=== PATIENT | female | born 1970 | race Caucasian/White ===

== ENCOUNTER 2018-02-04 18:51 | Emergency (ER) | payer OTHER ==
[2018-02-04 18:57] VITALS: BP 139/58; PULSE 68; TEMP 98; BMI 346.4
--- NOTE | 2018-02-04 19:00 | PDOC ---
Rapid Medical Evaluation Time Seen by Provider: 02/04/18 18:56 Medical Evaluation: Allergies Allergy/AdvReac Type Severity Reaction Status Date / Time No Known Drug Allergies Allergy Verified 02/04/18 18:52 Vital Signs Temp Pulse Resp BP Pulse Ox 98 F 68 18 139/58 L 100 02/04/18 18:53 02/04/18 18:53 02/04/18 18:53 02/04/18 18:53 02/04/18 18:53 02/04/18 18:57 I have performed a brief in-person evaluation of this patient. The patient presents with a chief complaint of: vaginal itching and dysuria s/p unprotected sex Pertinent physical exam findings: Abd SNTND. I have ordered the following: urine The patient will proceed to the ED for further evaluation. Discharge Disposition - Diagnosis Vaginal burning - Referrals - Patient Instructions - Post Discharge Activity
--- NOTE | 2018-02-04 19:34 | PDOC ---
History of Present Illness - General Chief Complaint: Vaginal Sxs Stated Complaint: PAIN Time Seen by Provider: 02/04/18 18:56 - History of Present Illness Initial Comments: Bella Vergara is a 47yo woman with a PMH of nephrolithiasis requiring lithotripsy and uterine fibroids s/p hysterectomy. She presents with one day of vaginal itching and burning. She reports that starting yesterday, she noticed some vaginal itching inside the vaginal canal. She had pain with intercourse and afterwards noticed a small amount of pinkish discharge when she wiped after using the bathroom. She thought it might be a yeast infection as she had one years ago, and she bought an [id number] "egg" to treat it. She used the medication around 9am without any improvement. The itching and burning has worsened throughout the day. Ms Vergara has also had burning pain with urination today. She denies any flank or suprapubic pain, hematuria, or frequency. She states that the current feeling is nothing like when she had kidney stones in the past. She was most concerned about the pink vaginal discharge as she had a hysterectomy two years ago, and she was worried when she saw blood today. She denies any change in bowel habits, abdominal pain, nausea/vomiting, or systemic symptoms including fevers or chills. She takes no medications at home and has no known health problems currently. Past History - Past Medical History Allergies/Adverse Reactions: Allergies Allergy/AdvReac Type Severity Reaction Status Date / Time No Known Drug Allergies Allergy Verified 02/04/18 18:52 Home Medications: Ambulatory Orders Hydrocodone/Ibuprofen [Hydrocodone-Ibuprofen 7.5-200] 1 each PO Q6H #20 tablet MDD 4 01/03/16 Ibuprofen [Motrin -] 800 mg PO Q6H #30 tablet 01/03/16 Ondansetron HCl [Zofran] 4 mg PO Q8H #12 tablet 01/03/16 Tamsulosin HCl [Flomax] 0.4 mg PO DAILY #7 cap.er.24h 01/03/16 Fluconazole 150 mg PO ONCE #1 tablet 02/04/18 Anemia: Yes (due to fibroids) Asthma: No Cancer: No Cardiac Disorders: No CVA: No COPD: No CHF: No Dementia: No Diabetes: No GI Disorders: No Disorders: No HTN: No Hypercholesterolemia: No Kidney Stones: Yes (lithotripsy) Liver Disease: No Seizures: No Thyroid Disease: No - Surgical History Abdominal Surgery: No (liposuction/tummy tuck) Appendectomy: No Cardiac Surgery: No Cholecystectomy: No Lung Surgery: No Neurologic Surgery: No Orthopedic Surgery: No - Immunization History Immunization Up to Date: Yes - Suicide/Smoking/Psychosocial Hx Smoking History: Current some day smoker Have you smoked in the past 12 months: No Number of Cigarettes Smoked Daily: 0 Information on smoking cessation initiated: Yes Hx Alcohol Use: No Drug/Substance Use Hx: No Substance Use Type: None Hx Substance Use Treatment: No Review of Systems - Review of Systems Comments:: General: No fevers, no chills, no weight or appetite change, no malaise HEENT: No changes in vision, no changes in hearing, no congestion, no sore throat CV: No chest pain, no palpitations, no LE edema Pulm: No SOB, no cough, no wheezing GI: No nausea or vomiting, no change in bowel habits, no melena : See HPI. +burning with urination, no unusual discharge Musc: No back pain, no joint swelling, no recent injury Skin: No rash, no lesions, no erythema Endo: No excessive thirst, no heat/cold intolerance Heme: No unusual bruising or bleeding, no swollen glands Neuro: No syncope, no numbness/tingling, no focal weakness Vasc: No claudication Psych: No recent change in mood, no SI or HI *Physical Exam - Vital Signs Last Vital Signs Temp Pulse Resp BP Pulse Ox 98 F 68 18 139/58 L 100 02/04/18 18:53 02/04/18 18:53 02/04/18 18:53 02/04/18 18:53 02/04/18 18:53 - Physical Exam Comments: General: Comfortable, no acute distress HEENT: PERRL, EOMI, MMM, voice normal, normal neck ROM, no LAD Cards: RRR, no murmur appreciated Pulm: Comfortable on room air, clear to auscultation bilaterally Abd: Soft, nontender, nondistended : No CVA tenderness Pelvic: Normal external genitalia, no lesions or discharge. Thick, white discharge in vaginal canal. No bleeding, lesions, or abrasions Ext: Atraumatic. No LE edema. ROM intact. Strength 5/5 and equal bilaterally Vasc: Extremities WWP. Skin: Normal color, no rashes or lesions Neuro: A&Ox3, CN grossly intact, normal speech, motor/sensory grossly intact and symmetric Psych: Mood appropriate to situation Medical Decision Making - Medical Decision Making 02/04/18 19:38 Bella Vergara is a 47yo woman with a PMH of kidney stones and uterine fibroids s /p hysterectomy who presents with one day of vaginal itching and burning with urination as well as pain during intercourse. She has not noticed any unusual discharge. - Symptoms consistent with UTI vs yeast infection, BV. Less concerning for gonorrhea/chlamydia or other STD - UA, gonorrhea and chlamydia sent in [facility]. Results pending - Pelvic exam with thick white discharge consistent with yeast infection - Likely to discharge home with antifungal prescription if UA is negative 02/04/18 20:17 - UA negative - Giving prescription for fluconazole. Will give 1 tablet here, additional tablet to be taken in 72 hours if symptoms have not resolved - Discussed plan with Ms Vergara. She understands and agrees to the plan. Advised her to make an appointment with Dr Garcia for follow up next week. Seen and discussed with Dr Bonds. Kati Ni PGY1 *DC/Admit/Observation/Transfer Diagnosis at time of Disposition: Yeast infection - Discharge Dispostion Disposition: HOME Condition at time of disposition: Stable Decision to Admit order: No - Prescriptions Prescriptions: Fluconazole 150 mg PO ONCE #1 tablet - Referrals Referrals: Nancy Garcia MD [Staff Physician] - - Patient Instructions Printed Discharge Instructions: DI for Vaginal Yeast Infection Additional Instructions: Discharge Instructions: - You were seen in the ED for vaginal burning and itching, and you were found to have a yeast infection. - You were given one antifungal tablet, fluconazole, while in the ED. If your symptoms have not resolved in 73 hours (Friday night), you should take a second tablet. This has been sent to your pharmacy. - Call your OB/gyne doctor (Dr Garcia) to schedule follow up for early next week - Seek medical care if you have worsening symptoms, vaginal bleeding, or fever/ chills along with your current symptoms - Post Discharge Activity
[2018-02-04 19:40] LABS: URINE APPEARANCE CLEAR; URINE BILIRUBIN NEGATIVE (<2.0 mg/dL); URINE COLOR LTYELLOW; URINE GLUCOSE (UA) NEGATIVE (NEGATIVE); URINE KETONE NEGATIVE (NEGATIVE); URINE LEUK ESTERASE NEGATIVE (NEGATIVE); URINE NITRITE NEGATIVE (NEGATIVE); URINE PROTEIN NEGATIVE (NEGATIVE)
--- NOTE | 2018-02-04 20:05 | PDOC ---
Attending Attestation - Resident Resident Name: Kati Ni - ED Attending Attestation I have performed the following: I have examined & evaluated the patient, The case was reviewed & discussed with the resident, I agree w/resident's findings & plan, Exceptions are as noted - Medical Decision Making 02/04/18 20:05 I, Dr. Collette Bonds, DO, attest that this document has been prepared under my direction and personally reviewed by me in its entirety. I further attest, that it accurately reflects all work, treatment, procedures and medical decision -making performed by me. 02/04/18 20:15 a/p: 47yo female with vaginal itching and discharge -per resident, has white cheesy discharge on exam consistent with a yeast infection -hx of hysterectomy -follows with dr. 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 The patient presents with 1 day of vaginal itching, with pain after intercourse. The patient reports the pains been without improvement all day today, reports using an OTC egg treatment, without relief. The patient states she noticed a pinkish discharge when she was wiping. The patient reports associated symptoms of dysuria, denies fever, chills, hematuria, changes in bowel habits. Allergies: NKDA Social history: Current everyday smoker, no past or present us of alcohol reported. Surgical history: hysterectomy, lithotripsy, liposuction/tummy tuck. BLACK PICKLER: . - Physicial Exam PE: 02/04/18 21:28 GENERAL: Awake, alert, and fully oriented, in no acute distress HEAD: No signs of trauma EYES: PERRLA, EOMI, sclera anicteric, conjunctiva clear ENT: Auricles normal inspection, hearing grossly normal, nares patent, oropharynx clear without exudates. Moist mucosa NECK: Normal ROM, supple, no lymphadenopathy, JVD, or masses LUNGS: Breath sounds equal, clear to auscultation bilaterally. No wheezes, and no crackles HEART: Regular rate and rhythm, normal S1 and S2, no murmurs, rubs or gallops ABDOMEN: Soft, nontender. No guarding, no rebound. No masses Pelvic exam: Per Dr. Ni. EXTREMITIES: Normal range of motion, no edema. No clubbing or cyanosis. No cords, erythema, or tenderness NEUROLOGICAL: Cranial nerves II through XII grossly intact. Normal speech, normal gait SKIN: Warm, Dry, normal turgor, no rashes or lesions noted. - Medical Decision Making 02/04/18 21:33 Documentation prepared by Xiomara Montano, acting as center medical director for Collette Bonds DO. <Xiomara Montano - Last Filed: 02/04/18 21:33>
[2018-02-04] MEDS ORDERED: FLUCONAZOLE 50 MG TABLET PO ONE (20:09)
[2018-02-04] MEDS ORDERED: FLUCONAZOLE 100 MG TABLET (UD) PO ONE (20:15)
[2018-02-04] MEDS ORDERED: FLUCONAZOLE 100 MG TABLET (UD) ONE (20:23)
== END 2018-02-04 20:32 | disposition home or self-care (01) ==
LOC: JER 18:51
DX: B37.9 Candidiasis, unspecified (principal); N20.0 Calculus of kidney
CPT/HCPCS: 36415; 81003; 87086; 87491; 87591; 99281-25

== ENCOUNTER 2018-04-08 19:12 | Emergency (ER) | payer OTHER ==
[2018-04-08 19:31] VITALS: BP 137/70; PULSE 70; TEMP 98; BMI 35.5
--- NOTE | 2018-04-08 19:31 | PDOC ---
Rapid Medical Evaluation Medical Evaluation: Allergies Allergy/AdvReac Type Severity Reaction Status Date / Time No Known Drug Allergies Allergy Verified 02/04/18 18:52 I have performed a brief in-person evaluation of this patient. The patient presents with a chief complaint of: Hx of hysterectomy; Concerned for possible yeast infection; having cottage-cheese like vaginal discharge and itching x 3 days Pertinent physical exam findings: Deferred I have ordered the following: Nothing The patient will proceed to the ED for further evaluation 04/08/18 19:28 Discharge Disposition - Referrals Referrals: Barry Medina MD [Primary Care Provider] - - Patient Instructions - Post Discharge Activity
[2018-04-08] MEDS ORDERED: FLUCONAZOLE 150 MG TABLET PO ONE (21:02)
[2018-04-08] MEDS ORDERED: FLUCONAZOLE 100 MG TABLET (UD) ONE (21:04)
--- NOTE | 2018-04-08 21:05 | PDOC ---
History of Present Illness - General Chief Complaint: Vaginal Sxs Stated Complaint: PERSONAL Time Seen by Provider: 04/08/18 19:31 History Source: Patient Exam Limitations: No Limitations Past History - Past Medical History Allergies/Adverse Reactions: Allergies Allergy/AdvReac Type Severity Reaction Status Date / Time No Known Drug Allergies Allergy Verified 04/08/18 19:31 Home Medications: Ambulatory Orders Fluconazole 150 mg PO DAILY #10 tablet 04/08/18 Anemia: Yes (due to fibroids) Asthma: No Cancer: No Cardiac Disorders: No CVA: No COPD: No CHF: No Dementia: No Diabetes: No GI Disorders: No Disorders: No HTN: No Hypercholesterolemia: No Kidney Stones: Yes (lithotripsy) Liver Disease: No Seizures: No Thyroid Disease: No - Surgical History Abdominal Surgery: Yes (liposuction/tummy tuck) Appendectomy: No Cardiac Surgery: No Cholecystectomy: No Lung Surgery: No Neurologic Surgery: No Orthopedic Surgery: No - Immunization History Immunization Up to Date: Yes - Suicide/Smoking/Psychosocial Hx Smoking History: Never smoked Have you smoked in the past 12 months: No Number of Cigarettes Smoked Daily: 0 Hx Alcohol Use: No Drug/Substance Use Hx: No Substance Use Type: None Hx Substance Use Treatment: No *Physical Exam - Vital Signs Last Vital Signs Temp Pulse Resp BP Pulse Ox 98.0 F 70 18 137/70 97 04/08/18 19:29 04/08/18 19:29 04/08/18 19:29 04/08/18 19:29 04/08/18 19:29 - Physical Exam General Appearance: No: Apparent Distress Respiratory/Chest: positive: Lungs Clear, Normal Breath Sounds. negative: Respiratory Distress Cardiovascular: positive: Regular Rhythm, Regular Rate, S1, S2. negative: Murmur Female Pelvic Exam: positive: discharge (cottage cheese like discharge). negative: CMT, adnexal tenderness, vaginal bleeding Gastrointestinal/Abdominal: positive: Normal Bowel Sounds, Soft. negative: Tender, Distended, Guarding, Rebound Integumentary: positive: Normal Color Moderate Sedation - Procedure Monitoring Vital Signs: Procedure Monitoring Vital Signs Temperature 98.0 F 04/08/18 19:29 Pulse Rate 70 04/08/18 19:29 Respiratory Rate 18 04/08/18 19:29 Blood Pressure 137/70 04/08/18 19:29 O2 Sat by Pulse Oximetry (%) 97 04/08/18 19:29 Medical Decision Making - Medical Decision Making 48 y/o F hx of hysterectomy (due to fibroids), kidney stones presents with cottage-cheese like vaginal discharge and itching x 3 days. Was recently treated for yeast infection in 01/2018 with Fluconazole x 1 (got additional tablet on discharge to take in 72 hours, which patient did end up taking). Denies fever, sob, cp, abd pain, n/v, urinary complaints. PE consistent with vaginal candidiasis Given recurrent yeast infection, will treat for longer time; also advised to f/ u with her paperhanger pipe 04/08/18 21:04 *DC/Admit/Observation/Transfer Diagnosis at time of Disposition: Vaginal candidiasis - Discharge Dispostion Disposition: HOME Condition at time of disposition: Stable Decision to Admit order: No - Prescriptions Prescriptions: Fluconazole 150 mg PO DAILY #10 tablet - Referrals Referrals: Barry Medina MD [Primary Care Provider] - 3 days - Patient Instructions Printed Discharge Instructions: DI for Vaginal Yeast Infection Additional Instructions: Thank you for choosing [facility]. It was a pleasure taking care of you. You were seen here for yeast infection, for which you were prescribed Fluconazole Take the medication as prescribed Follow-up with paperhanger pipe in 1 week. Return to the Emergency Department if your symptoms worsen or persist or have other concerning symptoms. - Post Discharge Activity
== END 2018-04-08 21:11 | disposition home or self-care (01) ==
LOC: JERFT 19:12
DX: B37.3 Candidiasis of vulva and vagina (principal)
CPT/HCPCS: 99281-25

== ENCOUNTER 2018-04-22 19:02 | Emergency (ER) | payer OTHER ==
[2018-04-22 19:14] VITALS: BP 138/64; PULSE 92; TEMP 98.1; BMI 35.5
--- NOTE | 2018-04-22 19:14 | PDOC ---
Rapid Medical Evaluation Chief Complaint: Urinary Problem Time Seen by Provider: 04/22/18 19:11 Medical Evaluation: Allergies Allergy/AdvReac Type Severity Reaction Status Date / Time No Known Drug Allergies Allergy Verified 04/08/18 19:31 04/22/18 19:13 I have performed a brief in person evaluation of this patient. The patient presents with the CC of: dysuria HPI: Pt complains of dysuria x 1 day. Denies hx of UTIs PE: Skin: Clear Lungs: Clear Heart: RRR Abd: non tender MS: Moves all extremities without difficulty Neuro: Alert and oriented Psych: Appropriate affect I have ordered the following: UA CG Pt will proceed to the [facility] for further evaluation. Discharge Disposition - Diagnosis Urinary tract infection Qualifiers: Urinary tract infection type: site unspecified Hematuria presence: with hematuria Qualified Code(s): N39.0 - Urinary tract infection, site not specified ; R31.9 - Hematuria, unspecified - Referrals - Patient Instructions - Post Discharge Activity
[2018-04-22 19:34] LABS: URINE APPEARANCE CLOUDY; URINE BILIRUBIN NEGATIVE (<2.0 mg/dL); URINE COLOR YELLOW; URINE GLUCOSE (UA) NEGATIVE (NEGATIVE); URINE KETONE NEGATIVE (NEGATIVE); URINE LEUK ESTERASE 3+ (NEGATIVE); URINE NITRITE POSITIVE (NEGATIVE); URINE PROTEIN 2+ (NEGATIVE); URINE UROBILINOGEN NEGATIVE mg/dL (0.2-1.0)
--- NOTE | 2018-04-22 19:35 | PDOC ---
History of Present Illness - General Chief Complaint: Urinary Problem Stated Complaint: BODYACHES Time Seen by Provider: 04/22/18 19:11 - History of Present Illness Initial Comments: 04/22/18 19:34 48-year-old female without comorbidities presents for evaluation of dysuria without systemic symptoms times one day. She also reports hematorrhea without back pain. Past History - Past Medical History Allergies/Adverse Reactions: Allergies Allergy/AdvReac Type Severity Reaction Status Date / Time No Known Drug Allergies Allergy Verified 04/22/18 19:14 Home Medications: Ambulatory Orders Fluconazole 150 mg PO DAILY #10 tablet 04/08/18 Nitrofurantoin Monohyd/M-Cryst [Macrobid -] 100 mg PO BID #14 capsule 04/22/18 Anemia: Yes (due to fibroids) Asthma: No Cancer: No Cardiac Disorders: No CVA: No COPD: No CHF: No Dementia: No Diabetes: No GI Disorders: No Disorders: No HTN: No Hypercholesterolemia: No Kidney Stones: Yes (lithotripsy) Liver Disease: No Seizures: No Thyroid Disease: No - Surgical History Abdominal Surgery: Yes (liposuction/tummy tuck) Appendectomy: No Cardiac Surgery: No Cholecystectomy: No Lung Surgery: No Neurologic Surgery: No Orthopedic Surgery: No - Immunization History Immunization Up to Date: Yes - Suicide/Smoking/Psychosocial Hx Smoking History: Never smoked Have you smoked in the past 12 months: No Number of Cigarettes Smoked Daily: 0 Hx Alcohol Use: No Drug/Substance Use Hx: No Substance Use Type: None Hx Substance Use Treatment: No Review of Systems - Review of Systems Constitutional: No: Fever : Yes: See HPI, Burning, Dysuria, Frequency, Hematuria, Pain, Urgency. No: Discharge, Flank Pain, Incontinence *Physical Exam - Vital Signs Last Vital Signs Temp Pulse Resp BP Pulse Ox 98.1 F 92 H 18 138/64 99 04/22/18 19:11 04/22/18 19:11 04/22/18 19:11 04/22/18 19:11 04/22/18 19:11 - Physical Exam Comments: 04/22/18 19:34 HEAD: NC/AT EYES: Conjuntiva clear ABDOMEN: Soft NT ND; no cvat MS: Full ROM in all joints without edema NEUROLOGIC: No gross sensory or motor deficits, NVID SKIN: Normal color and temperature no lesions or rashes Moderate Sedation - Procedure Monitoring Vital Signs: Procedure Monitoring Vital Signs Temperature 98.1 F 04/22/18 19:11 Pulse Rate 92 H 04/22/18 19:11 Respiratory Rate 18 04/22/18 19:11 Blood Pressure 138/64 04/22/18 19:11 O2 Sat by Pulse Oximetry (%) 99 04/22/18 19:11 *DC/Admit/Observation/Transfer Diagnosis at time of Disposition: Urinary tract infection Qualifiers: Urinary tract infection type: site unspecified Hematuria presence: with hematuria Qualified Code(s): N39.0 - Urinary tract infection, site not specified - Discharge Dispostion Disposition: HOME Condition at time of disposition: Stable Decision to Admit order: No - Prescriptions Prescriptions: Nitrofurantoin Monohyd/M-Cryst [Macrobid -] 100 mg PO BID #14 capsule - Referrals Referrals: Barry Medina MD [Primary Care Provider] - - Patient Instructions Printed Discharge Instructions: Urinary Tract Infection Additional Instructions: Please take the antibiotics as directed. Return to the emergency room should symptoms worsen or go unresolved. Follow-up with your primary care physician in one to 2 days for further evaluation and treatment options. - Post Discharge Activity
[2018-04-22 19:36] LABS: HCG,QUALITATIVE URINE Negative
[2018-04-22 19:39] LABS: EPI CELLS RARE /HPF (FEW); URINE MUCUS RARE; YEAST RARE
== END 2018-04-22 19:46 | disposition home or self-care (01) ==
LOC: JERFT 19:02
DX: N39.0 Urinary tract infection, site not specified (principal)
CPT/HCPCS: 81003; 81015; 84703; 99281-25

== ENCOUNTER 2019-02-11 11:08 | Emergency (ER) | payer OTHER ==
[2019-02-11 11:14] VITALS: BP 108/62; PULSE 80; TEMP 98.6; BMI 38.5
[2019-02-11] MEDS ORDERED: IBUPROFEN 600 MG TABLET (FP) PO ONE ×2 (11:18→11:23)
--- NOTE | 2019-02-11 11:18 | PDOC ---
History of Present Illness <KerriLeanna Nena - Last Filed: 02/11/19 13:27> - General History Source: Patient Exam Limitations: No Limitations - History of Present Illness Initial Comments: 02/11/19 11:21 48 yo female pmh asthma presents to the ED after a fall with left ankle pain. Pt states she was walking on gravel ground, inverted her left ankle, had sudden onset pain however did not fall or injure any other part of her body. Pt was able to ambulate full weight baring within 10 min of the fall. Pt noted swelling and point tenderness to the left lateral maleolus. Denies strength or sensory changes, decreased ROM, coldness into the foot. <Santosh Graves - Last Filed: 02/11/19 13:43> - General Chief Complaint: Injury Stated Complaint: LEFT ANKLE INJURY Time Seen by Provider: 02/11/19 11:12 Past History <KerriLeanna Nena - Last Filed: 02/11/19 13:27> - Past Medical History Anemia: Yes (due to fibroids) Asthma: Yes Cancer: No Cardiac Disorders: No CVA: No COPD: No CHF: No Dementia: No Diabetes: No GI Disorders: No Disorders: No HTN: No Hypercholesterolemia: No Kidney Stones: Yes (lithotripsy) Liver Disease: No Seizures: No Thyroid Disease: No - Surgical History Abdominal Surgery: Yes (liposuction/tummy tuck) Appendectomy: No Cardiac Surgery: No Cholecystectomy: No Lung Surgery: No Neurologic Surgery: No Orthopedic Surgery: No - Immunization History Immunization Up to Date: Yes - Psycho Social/Smoking Cessation Hx Smoking History: Never smoked Have you smoked in the past 12 months: No Number of Cigarettes Smoked Daily: 0 Information on smoking cessation initiated: No Hx Alcohol Use: (occasional) Drug/Substance Use Hx: No Substance Use Type: None Hx Substance Use Treatment: No <Santosh Graves - Last Filed: 02/11/19 13:43> - Past Medical History Allergies/Adverse Reactions: Allergies Allergy/AdvReac Type Severity Reaction Status Date / Time No Known Drug Allergies Allergy Verified 02/11/19 11:09 Home Medications: Ambulatory Orders Albuterol Sulfate Inhaler - [Ventolin Hfa Inhaler -] 1 - 2 inh PO Q4H PRN Review of Systems - Review of Systems Respiratory: No: Shortness of Breath Cardiac (ROS): No: Chest Pain Musculoskeletal: Yes: Joint Swelling (left ankle). No: Back Pain, Muscle Weakness Integumentary: No: Change in Color, Lesions Neurological: No: Numbness, Paresthesia, Weakness <Santosh Graves - Last Filed: 02/11/19 13:43> *Physical Exam - Vital Signs Last Vital Signs Temp Pulse Resp BP Pulse Ox 98.6 F 80 16 108/62 98 02/11/19 11:08 02/11/19 11:08 02/11/19 11:08 02/11/19 11:08 02/11/19 11:08 <Leanna Manning - Last Filed: 02/11/19 13:27> - Vital Signs Last Vital Signs Temp Pulse Resp BP Pulse Ox 98.6 F 80 16 108/62 98 02/11/19 11:08 02/11/19 11:08 02/11/19 11:08 02/11/19 11:08 02/11/19 11:08 - Physical Exam General Appearance: Yes: Nourished, Appropriately Dressed. No: Apparent Distress HEENT: positive: EOMI Neck: positive: Supple. negative: Carotid bruit Respiratory/Chest: positive: Lungs Clear, Normal Breath Sounds. negative: Accessory Muscle Use, Crackles, Rales, Rhonchi, Stridor, Wheezing Cardiovascular: positive: Regular Rhythm, Regular Rate, S1, S2. negative: Edema , JVD, Murmur Vascular Pulses: Dorsalis-Pedis (R): 4+, Doralis-Pedis (L): 4+ Gastrointestinal/Abdominal: positive: Flat, Soft. negative: Distended, Tenderness Extremity: positive: Normal Capillary Refill, Normal Inspection, Normal Range of Motion, Other (no fibular head pain ). negative: Coldness, Calf Tenderness Integumentary: positive: Normal Color, Dry, Warm <Santosh Graves - Last Filed: 02/11/19 13:43> ED Treatment Course - RADIOLOGY Radiology Studies Ordered: Category Date Time Status ANKLE-LEFT [RAD] Stat Radiology 02/11/19 11:18 Completed - Medications Given in the ED: ED Medications Discontinued Medications Generic Name Dose Route Start Last Admin Trade Name Freq PRN Reason Stop Dose Admin Ibuprofen 600 mg 02/11/19 11:18 02/11/19 11:25 Motrin - PO 02/11/19 11:19 600 mg ONCE ONE Administration <Leanna Manning - Last Filed: 02/11/19 13:27> Medical Decision Making - Medical Decision Making 02/11/19 13:41 48 yo female pmh asthma presents to the ED after a fall with left ankle pain. Pt states she was walking on gravel ground, inverted her left ankle, had sudden onset pain however did not fall or injure any other part of her body. Pt was able to ambulate full weight baring within 10 min of the fall. Pt noted swelling and point tenderness to the left lateral maleolus. Denies strength or sensory changes, decreased ROM, coldness into the foot. Vitals WNL NAD, ambulates with antalgic gait X ray shows old avulsion fracture and some mild joint widening but no lateral meleolar fracture or acute process Pt safe for DC home with RICE precautions, NSAIDs, air cast and Ortho f/u if needed Pt understands and agrees with plan <Santosh Graves - Last Filed: 02/11/19 13:43> Discharge - Discharge Information Problems reviewed: Yes - Admission No <Leanna Manning Nena - Last Filed: 02/11/19 13:27> - Discharge Information Problems reviewed: Yes - Admission No <Santosh Graves - Last Filed: 02/11/19 13:43> - Discharge Information Clinical Impression/Diagnosis: Left ankle sprain Condition: Stable Disposition: HOME - Follow up/Referral Referrals: Barry Medina MD [Primary Care Provider] - Marcus Marshall MD [Staff Physician] - Joshua Quiroz MD [Staff Physician] - - Patient Discharge Instructions Patient Printed Discharge Instructions: DI for Ankle Sprain Additional Instructions: Please follow up with your Primary Doctor within the next 48 hours. Rest, ice, compress and elevated your left ankle over the until pain resolves. Use over the counter NSAID medication such as Motrin for pain as and swelling. Go to the Orthopedic Surgeon if pain and swelling persist. Thank you - Post Discharge Activity Work/Back to School Note: Back to Work
--- NOTE | 2019-02-11 12:17 | PDOC ---
Attending Attestation - Resident Resident Name: Santosh Graves - ED Attending Attestation I have performed the following: I have examined & evaluated the patient, The case was reviewed & discussed with the resident, I agree w/resident's findings & plan - HPI HPI: 02/11/19 12:14 48 YOF presenting with left ankle pain and swelling x 1 day, since yesterday, where she was walking and inverted her foot. able to ambulate with some assistance. no paresthesias, weakness. no head injury. - Physicial Exam PE: 02/11/19 12:15 physical exam General: NAD, well appearing Vascular: 2+ DP pulses symmetric and equal MSK: notable for soft compartments, Cap refill <2 sec. Proximal and distal strength 5/5, forest supervisor strength 5/5 - equal and symmetric. Plantar flexion and dorsiflexion 5/5. FROM. Sensation grossly intact to light touch. No calf tenderness. no prox fibular tenderness, +left lateral malleolar TTP, mild swelling, no skin discoloration or ecchymosis. no proximal knee or thigh/hip tenderness. Neuro: alert, no focal neurologic deficits Skin: color normal color, warm and well perfused. Cap refill <2 sec. 02/11/19 13:27 - Medical Decision Making 02/11/19 12:16 Vital Signs Temp Pulse Resp BP Pulse Ox 98.6 F 80 16 108/62 98 02/11/19 11:08 02/11/19 11:08 02/11/19 11:08 02/11/19 11:08 02/11/19 11:08 ddx ankle sprain/contusion, ankle fx, tib-fib fx VS reviewed, wnl Xray left ankle normal joint space alignment, no acute fx or dislocation. Old avulsion fracture of the medial malleolus, no acute fracture on the lateral side where patient is most tender, joint is well aligned, no significant widening of the mortise given ibuprofen here, resting and icing the area. c/w YOGESH, ortho followup. referrals given work note Discussed results with patient. ankle splint/air cast. for comfort,. Rest ice and elevation. Pain control with OTC meds including motrin/tylenol as needed every 6 hours; no narcotics needed. Ortho followup provided. Crutches to assist with ambulation, WBAT. Please return to ED for increased pain, weakness, numbness/tingling, fever, or redness. 02/11/19 13:27
== END 2019-02-11 13:45 | disposition home or self-care (01) ==
LOC: FER 11:08
PROC: 2W3RX1Z Immobilization of Left Lower Leg using Splint (ICD-10-PCS; principal; 2019-02-11)
DX: S93.402A Sprain of unspecified ligament of left ankle, initial encounter (principal); X50.0XXA Overexertion from strenuous movement or load, initial encounter; Y93.01 Activity, walking, marching and hiking; Y92.89 Other specified places as the place of occurrence of the external cause
CPT/HCPCS: 73610-TC-LT-FY; 99282-25

== ENCOUNTER 2019-03-29 08:00 | Inpatient (IN) | payer OTHER ==
[2019-03-22 09:48] VITALS: BMI 39.2
[2019-04-05] MEDS ORDERED: MIDAZOLAM HCL 2 MG/2 ML SINGLE DOSE VIAL ONE ×2 (06:54→07:26)
[2019-04-05] MEDS ORDERED: BUPIVACAINE HCL/PF 0.5% (5 MG/ML) 30 ML VIAL IJ ONE (06:54)
[2019-04-05] MEDS ORDERED: PROPOFOL 20 ML ONE (07:25)
[2019-04-05] MEDS ORDERED: ONDANSETRON 4 MG/2 ML VIAL ONE ×2 (07:26→11:28)
[2019-04-05] MEDS ORDERED: SUCCINYLCHOLINE CHLORIDE 200 MG/10 ML SYRINGE ONE (07:26)
[2019-04-05] MEDS ORDERED: KETOROLAC TROMETHAMINE 30 MG/1 ML VIAL ONE (07:26)
[2019-04-05] MEDS ORDERED: KETAMINE HCL 200 MG/20 ML VIAL ONE (07:26)
[2019-04-05] MEDS ORDERED: SODIUM CHLORIDE 0.9% P/F 10 ML VIAL IJ ONE (07:26)
[2019-04-05] MEDS ORDERED: ROCURONIUM BROMIDE 50 MG/5 ML SYRINGE ONE (07:26)
[2019-04-05] MEDS ORDERED: ceFAZolin SODIUM 1 GM VIAL ONE (07:26)
[2019-04-05] MEDS ORDERED: DEXAMETHASONE SOD PHOSPHATE 4 MG/1 ML VIAL ONE ×2 (07:26→08:16)
[2019-04-05] MEDS ORDERED: LIDOCAINE HCL/PF 2% SDV 5ML VIAL ONE (07:26)
[2019-04-05] MEDS ORDERED: DEXMEDETOMIDINE HCL 200 MCG/2 ML IVPB ONE (07:35)
[2019-04-05] MEDS ORDERED: ALBUTEROL SO4 8 GM HFA INHALER IH PRN (07:45)
--- NOTE | 2019-04-05 07:48 | HP ---
Admitting History and Physical - Admission Chief Complaint: Morbid obesity History Source: Patient Limitations to Obtaining History: No Limitations - Past Medical History Pulmonary: Yes: Other (Hospitalized 1 1/2 years ago for pneumonitis; was queried by radiologist if she had ingested anything; denied h/o pica at the time ) Gastrointestinal: Yes: GERD Renal/: Yes: Renal Calculi ...LMP: 08/29/15 ...: No Heme/Onc: Yes: Anemia Psych: Yes: Other (pica) - Past Surgical History Additional Past Surgical History: Myomectomy Abdominoplasty Liposuction - Smoking History Smoking history: Never smoked Have you smoked in the past 12 months: No Aproximately how many cigarettes per day: 0 - Alcohol/Substance Use Hx Alcohol Use: No History of Substance Use: reports: None - Social History ADL: Independent History of Recent Travel: No Home Medications - Allergies Allergies/Adverse Reactions: Allergies Allergy/AdvReac Type Severity Reaction Status Date / Time No Known Drug Allergies Allergy Verified 02/11/19 11:09 - Home Medications Home Medications: Ambulatory Orders Albuterol Sulfate Inhaler - [Ventolin Hfa Inhaler -] 1 - 2 inh PO Q4H PRN Family Medical History Family History: Unremarkable Review of Systems - Review of Systems Constitutional: denies: Chills, Fever Neck: reports: No Symptoms Cardiovascular: reports: No Symptoms Respiratory: reports: No Symptoms Gastrointestinal: reports: No Symptoms Neurological: reports: No Symptoms Pain Intensity: 0 Physical Examination Vital Signs: Vital Signs Temperature 98.9 F 04/05/19 06:49 Pulse Rate 77 04/05/19 06:49 Respiratory Rate 16 04/05/19 06:49 Blood Pressure 130/68 04/05/19 06:49 O2 Sat by Pulse Oximetry (%) Constitutional: Yes: Calm Neck: Yes: WNL Cardiovascular: Yes: WNL Respiratory: Yes: Regular Gastrointestinal: Yes: Soft, Abdomen, Obese Neurological: Yes: Alert, Oriented Problem List - Problems (1) Morbid obesity due to excess calories Code(s): E66.01 - MORBID (SEVERE) OBESITY DUE TO EXCESS CALORIES Assessment/Plan Laparoscopic possible open vertical sleeve gastrectomy possible liver biopsy, upper endoscopy
[2019-04-05] MEDS ORDERED: BUPIVACAINE HCL 0.25% 125 MG/50 ML VIAL ONE (07:53)
[2019-04-05] MEDS ORDERED: MAGNESIUM SULF 50% (8.12 MEQ/2 ML-1 GM VIAL) ONE (08:51)
[2019-04-05] MEDS ORDERED: NEOSTIGMINE METHYLSULFATE 0.5 MG/ML - 10 ML MDV ONE (09:59)
[2019-04-05] MEDS ORDERED: GLYCOPYRROLATE 0.2 MG/1 ML VIAL ONE (10:00)
[2019-04-05] MEDS ORDERED: BUPIVACAINE HCL/PF 0.25% (2.5MG/ML) 10 ML VIAL IJ ONE ×2 (10:02)
[2019-04-05] MEDS ORDERED: SODIUM CHLORIDE 1,000 ML IV SCH ×2 (10:15→21:00)
--- NOTE | 2019-04-05 10:16 | OPR ---
Operative Note Operative Date: 04/05/19 Pre-Operative Diagnosis: Morbid obesity Operation: 1. Diagnostic laparoscopy. 2. Laparoscopic vertical sleeve gastrectomy. 3. Laparoscopic wedge liver biopsy. Post-Operative Diagnosis: Same as Pre-op (as well as hepatomegaly ) Surgeon: David Garcia Pump Servicer Helper: Avinash Alejandre Anesthesia: General Specimens Removed: Greater curvature of stomach. Liver biopsy. Estimated Blood Loss (mls): 30 Drains & Tubes with Location: 36 Fr Bougie Operative Report Dictated: Yes
[2019-04-05] MEDS ORDERED: PROMETHAZINE HCL 25 MG/1 ML VIAL IVPUSH PRN (10:24)
[2019-04-05] MEDS ORDERED: oxyCODONE HCL 5 MG TABLET PO PRN ×2 (10:24)
[2019-04-05] MEDS ORDERED: ONDANSETRON 4 MG/2 ML VIAL IVPUSH PRN (10:24)
[2019-04-05] MEDS ORDERED: METOCLOPRAMIDE HCL INJECTION 10 MG/2 ML VIAL ONE (10:41)
[2019-04-05] MEDS ORDERED: FAMOTIDINE 20 MG/50 ML IVPB 20 MG/50 ML MG IVPB ONE (10:41)
[2019-04-05] MEDS ORDERED: ACETAMINOPHEN INJECTION 100 ML IVPB ONE (10:42)
[2019-04-05] MEDS: METOCLOPRAMIDE HCL INJECTION 10 MG/2 ML VIAL IVPUSH SCH ×4 (10:47→23:30)
[2019-04-05] MEDS: ACETAMINOPHEN 1000 MG/100 ML VIAL (NON FORMULARY) IVPB SCH ×4 (10:49→23:29)
[2019-04-05] MEDS ORDERED: FAMOTIDINE 20 MG PREMIXED IVPB IVPB ONE (11:00)
[2019-04-05 11:16] LABS: HEMATOCRIT 42.3 % (32.4-45.2); HEMOGLOBIN 14.3 GM/dl (10.7-15.3); MCHC 33.7 g/dl (32.0-36.0); MEAN CELL VOLUME 86.1 fl (80-96); MEAN PLT VOLUME 10.1 fl (7.5-11.1); PLATELET COUNT 235 K/MM3 (134-434); RBC 4.92 M/mm3 (3.60-5.2); RDW 12.9 % (11.6-15.6); WHITE BLOOD COUNT 14.2 K/mm3 (4.0-10.8)
[2019-04-05 11:24] LABS: BILIRUBIN,TOTAL 0.7 mg/dl (0.2-1); CALCIUM 9.6 mg/dl (8.5-10); CREATININE 0.7 mg/dl (0.55-1.3); TOT PROT 7.6 g/dl (6.4-8.2)
--- NOTE | 2019-04-05 11:34 | SPEC ---
DATE OF OPERATION: 04/05/2019 PLACE OF SERVICE: [facility], [address] [place] [address] SURGEON: Reese Garcia MD PUBLIC HEALTH SANITARIAN: Avinash Alejandre MD PREOPERATIVE DIAGNOSIS: Morbid obesity. POSTOPERATIVE DIAGNOSES: Morbid obesity, hepatomegaly. PROCEDURES: 1. Diagnostic laparoscopy. 2. Laparoscope vertical sleeve gastrectomy. 3. Laparoscope wedge liver biopsy. SPECIMENS: 1. Greater curvature of the stomach. 2. Liver biopsy. ESTIMATED BLOOD LOSS: 30 mL. DRAIN: None. ANESTHESIA: GET. BOUGIE SIZE: 36-Wolof. REASON FOR PROCEDURE: This is a 49-year-old female who presents to the office for weight loss options. After describing different options, decided to proceed with laparoscopic, possible open, vertical sleeve gastrectomy, possible liver biopsy, upper endoscopy. The patient was seen by the respective subspecialties and cleared for surgery. The risks and benefits of the procedure were explained. These included bleeding, infection, hernia, KS, DVT, PE, injury to surrounding structures including the liver, colon, bowel, spleen, esophagus, vessel injury, nerve injury, weight regain, gastric leak, staple line leak, sleeve leak, obstruction, vitamin deficiency, hair loss and as some of the possible complications. The patient understood and signed informed consent. DESCRIPTION OF PROCEDURE: The patient was placed supine on the operating room table. The patient underwent general endotracheal intubation. The arms were brought out at 90 degrees and secured. A footboard was placed and the legs were secured laterally with padding. The abdomen was prepped and draped in the usual sterile fashion. A timeout was performed. An incision was made in the left upper quadrant and a Veress needle inserted. Pneumoperitoneum was established. Subsequently, the Veress needle was removed and a 5-mm trocar was placed under direct visualization with the laparoscope. The laparoscopic camera was then inserted and inspection of the abdominal cavity was performed. An incision was then made in the supraumbilical area and a 15-mm trocar was placed under direct visualization. A 5-mm trocar was then placed in the right upper quadrant and a 5-mm trocar was placed below the left subcostal margin. A stab wound was made in the subxiphoid area and a Sherrill clamp inserted and removed to dilate the tract. A Mariya liver retractor was inserted. The post was secured at the bedside by the nursing staff. The patient was placed in steep reverse Trendelenburg position and the Mariya liver retractor was used to secure the liver towards the anterior abdominal wall. The pylorus was identified and 6 cm proximal to it, the lesser sac was entered using the LigaSure device. All lateral attachments to the greater curvature of the stomach, including the short gastric vessels, were ligated using the LigaSure device toward the gastrosplenic and gastrophrenic ligaments. Once this was done in its entirety, it was confirmed that all tubes within the nasal or oropharyngeal cavity, including a temperature probe were removed by Anesthesia. The bougie was then inserted by Anesthesia. Transection of the stomach was then begun staying adjacent to the bougie but away from the angularis. Transection of the stomach was performed near the portion of the stomach where the lesser sac was entered. Two laparoscopic Endo-EZIO black les were used at this location. Laparoscopic Endo EZIO purple staple loads were then used for the remainder of the transection until the greater curvature of the stomach was fully transected. This was done staying close to the bougie. Care was taken to stay away from the angle of His cephalad. The staple line was then inspected. Hemostasis was identified. A leak test was then performed. It was clamped distally to the staple line. Irrigation solution was placed in the left upper quadrant and air was insufflated by Anesthesia into the sleeve. No leaks were identified. No obstruction was identified. This was done through the entirety of the staple line. The stomach was suctioned and the bougie removed fully intact under direct visualization. At this point, the irrigation solution was suctioned and again, hemostasis was noted. A wedge liver biopsy was then performed. The left lobe of the liver was identified. A portion of the edge of the left lobe of the liver was grasped. Using electrocautery, a wedge of the left liver was excised. The specimen was removed and sent off the field. Hemostasis of the wedge liver biopsy site was attained and noted using electrocautery. The 15-mm supraumbilical trocar was then removed and the greater curvature specimen removed from the site using a sponge stick alvarez. A Misha-Jerrica device was then used to close the fascia with a 0 Vicryl suture at the site. Again, hemostasis was noted. The Mariya liver retractor was then removed under direct visualization. Pneumoperitoneum was desufflated. Hemostasis was noted at all incision sites and Marcaine was injected at all incision sites. A 3-0 Vicryl suture was used to close the deep subcutaneous tissue at the 15-mm incision site. All incision sites were closed using 4-0 Biosyn. Sterile dressings were applied. There was noted to be a laceration at the right portion of the liver due to the extensive size of the liver/extensive hepatomegaly. Minimal bleeding was noted at this area; however, at the end because of this, the area was both packed with Surgicel dressing as well as packed with Surgiflo to aid with hemostasis. The patient tolerated the procedure well and was transferred to the recovery room in stable condition. REESE GARCIA M.D. [id number]
[2019-04-05] MEDS ORDERED: ONDANSETRON 4 MG/2 ML VIAL IVPUSH SCH (12:00)
[2019-04-05] MEDS: HYDROmorphone HCL CARPU-JECT 1 MG/1 ML DISP.SYRIN IVPB PRN ×2 (14:19→21:21)
[2019-04-05] MEDS: ONDANSETRON 4 MG/2 ML VIAL IVPUSH SCH ×3 (15:01→23:30)
[2019-04-05] MEDS ORDERED: SODIUM CHLORIDE 1,000 ML IV ONE (19:00)
[2019-04-05] MEDS: ENOXAPARIN NA (PORCINE) 40 MG/0.4 ML DISP.SYRIN SQ SCH (21:22)
[2019-04-05] MEDS: FAMOTIDINE 20 MG/50 ML IVPB 20 MG/50 ML MG IVPB SCH (21:22)
[2019-04-05 22:47] LABS: BASO % 3.6 % (0-2.0); HEMATOCRIT 39.6 % (32.4-45.2); HEMOGLOBIN 13.4 GM/dl (10.7-15.3); LYMPH % 7.1 % (8-40); MCH 28.8 pg (25.7-33.7); MCHC 33.9 g/dl (32.0-36.0); MEAN CELL VOLUME 85.1 fl (80-96); MEAN PLT VOLUME 10.5 fl (7.5-11.1); MONO % 4.6 % (3.8-10.2); NEUT % 84.7 % (42.8-82.8); PLATELET COUNT 263 K/MM3 (134-434); RBC 4.65 M/mm3 (3.60-5.2); RDW 13.3 % (11.6-15.6); WHITE BLOOD COUNT 13.4 K/mm3 (4.0-10.8)
[2019-04-05 23:11] LABS: ALBUMIN 3.7 g/dl (3.4-5.0); BILIRUBIN,TOTAL 0.8 mg/dl (0.2-1); CALCIUM 9.6 mg/dl (8.5-10); CREATININE 0.6 mg/dl (0.55-1.3); POTASSIUM 4.5 mmol/L (3.5-5.1); TOT PROT 7.2 g/dl (6.4-8.2)
[2019-04-06] MEDS: ACETAMINOPHEN 1000 MG/100 ML VIAL (NON FORMULARY) IVPB SCH (04:00)
[2019-04-06] MEDS: ONDANSETRON 4 MG/2 ML VIAL IVPUSH SCH ×4 (04:00→16:00)
[2019-04-06] MEDS: METOCLOPRAMIDE HCL INJECTION 10 MG/2 ML VIAL IVPUSH SCH ×3 (04:01→17:45)
[2019-04-06 08:05] LABS: HEMATOCRIT 39.2 % (32.4-45.2); HEMOGLOBIN 12.8 GM/dl (10.7-15.3); MCHC 32.7 g/dl (32.0-36.0); MEAN CELL VOLUME 85.7 fl (80-96); MEAN PLT VOLUME 10.5 fl (7.5-11.1); PLATELET COUNT 236 K/MM3 (134-434); RBC 4.58 M/mm3 (3.60-5.2); RDW 12.8 % (11.6-15.6); WHITE BLOOD COUNT 12.6 K/mm3 (4.0-10.8)
[2019-04-06] MEDS: HYDROmorphone HCL CARPU-JECT 1 MG/1 ML DISP.SYRIN IVPB PRN (08:29)
--- NOTE | 2019-04-06 08:43 | PN ---
Addendum entered and electronically signed by Feliz Kapoor PA 04/06/19 09:56: UGI: negative leak/extravasation or gastric outlet obstruction. BST1 diet ordered. Original Note: Progress Note (short form) - Note Progress Note: POD#1 Pt with complaints upper abd pain/Left upper abd. Slight nausea, no emesis. No SOB. OOB and ambulating, voiding on her own. Vital Signs Period Temp Pulse Resp BP Sys/Adair Pulse Ox Last 24 Hr 98.1 F-99.5 F 99-113 14-21 127-154/54-88 92-99 GEN: A&0x3, NAD CV: RR, tachycardic Lungs: CTA b/l ABD; soft, non-distended, inc tenderness. Umbilical dressing blood tinged. Changed dressing and no active bleeding or ecchymosis noted. Applied a pressure dressing. Other inc c/d/i with bandaids. LE: no calf tenderness or swelling noted b/l. SCD/TEDs in place. CBC, BMP 04/06/19 07:25 Laboratory Tests 04/05/19 04/05/19 04/05/19 10:30 22:30 22:30 WBC 13.4 H Hgb 14.3 13.4 Hct 42.3 39.6 Plt Count 235 263 Sodium 135 L Potassium 4.5 Chloride 102 Carbon Dioxide 25 Anion Gap 8 BUN 10.0 Creatinine 0.6 A/p: 49 yo female s/p lap sleeve gastrectomy POD 1 Upper GI series this AM Pain control with Ofirmev 1g q6h, Dilaudid 1mg q3hrs prn DVT prophylaxis with Lovenox 40mg bid, b/l SCDS, b/l TEDS GI prophylaxis with Pepcid 20mg IV BID, Metoclopramide 10mg Iv q6hrs Zofran 4mg q4hrs prn n/v Remote tele/continuous pulse ox Monitor VS Monitor I&Os OOB ad dilan Continue IVF Incentive spirometry D/w Dr. Garcia, pt pending cardiology consult for post op tachycardia, EKG to be completed today <Leesa Flores - Last Filed: 04/06/19 08:57> - Note Progress Note: Agree POD 1 Tachycardia- seen by Cardiology Sinus tachycardia; cleared for discharge by cardiology Afebrile CBC,CMP WBC 12.6 K/mm3 (4.0-10.8) H 04/06/19 07:25 RBC 4.58 M/mm3 (3.60-5.2) 04/06/19 07:25 Hgb 12.8 GM/dl (10.7-15.3) 04/06/19 07:25 Hct 39.2 % (32.4-45.2) 04/06/19 07:25 MCV 85.7 fl (80-96) 04/06/19 07:25 MCH 28.0 pg (25.7-33.7) 04/06/19 07:25 MCHC 32.7 g/dl (32.0-36.0) 04/06/19 07:25 RDW 12.8 % (11.6-15.6) 04/06/19 07:25 Plt Count 236 K/MM3 (134-434) 04/06/19 07:25 MPV 10.5 fl (7.5-11.1) 04/06/19 07:25 Absolute Neuts (auto) 11.4 K/mm3 04/05/19 22:30 Neutrophils % 84.7 % (42.8-82.8) H 04/05/19 22:30 Lymphocytes % 7.1 % (8-40) L 04/05/19 22:30 Monocytes % 4.6 % (3.8-10.2) 04/05/19 22:30 Eosinophils % 0.0 % (0-4.5) 04/05/19 22:30 Basophils % 3.6 % (0-2.0) H 04/05/19 22:30 Sodium 137 mmol/L (136-145) 04/06/19 07:25 Potassium 4.1 mmol/L (3.5-5.1) 04/06/19 07:25 Chloride 101 mmol/L (98-107) 04/06/19 07:25 Carbon Dioxide 28 mmol/L (21-32) 04/06/19 07:25 Anion Gap 8 MMOL/L (8-16) 04/06/19 07:25 BUN 9.3 mg/dL (7-18) 04/06/19 07:25 Creatinine 0.7 mg/dL (0.55-1.3) 04/06/19 07:25 Est GFR (CKD-EPI)AfAm 119.58 04/06/19 07:25 Est GFR (CKD-EPI)NonAf 103.18 04/06/19 07:25 Random Glucose 150 mg/dL (74-106) H 04/06/19 07:25 Calcium 9.7 mg/dL (8.5-10.1) 04/06/19 07:25 Total Bilirubin 0.9 mg/dL (0.2-1) 04/06/19 07:25 AST 83 U/L (15-37) H 04/06/19 07:25 ALT 165 U/L (13-61) H 04/06/19 07:25 Alkaline Phosphatase 94 U/L (45-117) 04/06/19 07:25 Total Protein 7.7 g/dl (6.4-8.2) 04/06/19 07:25 Albumin 3.7 g/dl (3.4-5.0) 04/06/19 07:25 UGI: no leak/obstruction Clears Discharge home <David Garcia - Last Filed: 04/06/19 20:03> Problem List - Problems (1) Morbid obesity due to excess calories Code(s): E66.01 - MORBID (SEVERE) OBESITY DUE TO EXCESS CALORIES <David Garcia - Last Filed: 04/06/19 20:03>
--- NOTE | 2019-04-06 09:33 | CON.CARD ---
Consult Consult Specialty:: Cardiology Referred by:: Dr. Garcia Reason for Consultation:: tachycardia - History of Present Illness Chief Complaint: s/p bariatric surgery History of Present Illness: 49 year old woman with pmh obesity now s/p bariatric surgery. overnight last night noted to be tachycardia to 130s, sinus tach in the setting of postoperative pain. pt was given pain meds with improvement in pain and improvement in HR. pt seen and examined today in nad. states her pain is improved but came back again this am and she recently received more pain meds. no chest pain, sob, palpitations. no cardiac history. - History Source History Provided By: Patient, Medical Record Limitations to Obtaining History: No Limitations - Past Medical History Pulmonary: Yes: Other (Hospitalized 1 1/2 years ago for pneumonitis; was queried by radiologist if she had ingested anything; denied h/o pica at the time ) Gastrointestinal: Yes: GERD Renal/: Yes: Renal Calculi ...LMP: 08/29/15 ...: No Psych: Yes: Other (pica) - Alcohol/Substance Use Hx Alcohol Use: No History of Substance Use: reports: None - Smoking History Smoking history: Never smoked Have you smoked in the past 12 months: No Aproximately how many cigarettes per day: 0 - Social History ADL: Independent History of Recent Travel: No Home Medications - Allergies Allergies/Adverse Reactions: Allergies Allergy/AdvReac Type Severity Reaction Status Date / Time No Known Drug Allergies Allergy Verified 02/11/19 11:09 - Home Medications Home Medications: Ambulatory Orders Albuterol Sulfate Inhaler - [Ventolin Hfa Inhaler -] 1 - 2 inh PO Q4H PRN Family Medical History Family History: Denies Review of Systems - Review of Systems Constitutional: denies: No Symptoms, Chills, Diaphoresis, Fever, Lethargy, Loss of Appetite, Malaise, Night Sweats, Unintentional Wgt. Loss, Weakness, Other Eyes: denies: No Symptoms, Blind Spots, Blurred Vision, Double Vision, Eye Pain , Floaters, Photophobia, Recent Change in Vision, Other HENT: denies: No Symptoms, Difficult Swallowing, Ear Discharge, Ear Pain, Epistaxis, Gingival Bleeding, Hearing Loss, Mouth Swelling, Nasal Congestion, Ocular Prosthesis, Throat Pain, Toothache, Ringing in Ears, Other Neck: denies: No Symptoms, Decreased ROM, Lumps, Pain on Movement, Stiffness, Swollen Glands, Tenderness, Other Cardiovascular: denies: No Symptoms, Chest Pain, Edema, Palpitations, Shortness of Breath, Other Respiratory: denies: No Symptoms, Cough, Exercise Intolerance, Hemoptysis, Orthopnea, PND, Snoring, SOB, SOB on Exertion, Wheezing, Other Gastrointestinal: reports: Abdominal Pain. denies: No Symptoms, Bloating, Constipation, Diarrhea, Dysphagia, Indigestion, Melena, Nausea, Rectal Bleeding , Vomiting, Vomiting Blood, Other Genitourinary: denies: No Symptoms, Burning, Discharge, Dysuria, Flank Pain, Frequency, Hematuria, Incontinence, Lesions, Menses, Pain, Testicular Mass, Testicular Pain, Testicular Swelling, Urgency, Vaginal Bleeding, Other Breasts: denies: No Symptoms Reported, See HPI, Breast Implants, Discharge from Nipple, Lumps, Pain, Skin Changes, Other Musculoskeletal: denies: No Symptoms, Back Pain, Crepitus, Decreased ROM, Extremity Pain, Joint Pain, Joint Swelling, Muscle Pain, Muscle Cramps, Muscle Weakness, Other Integumentary: denies: No Symptoms, Blister, Bruising, Change in Color, Eczema, Erythema, Incision, Lesions, Lump, Pallor, Pruritis, Rash, Wound, Other Neurological: denies: No Symptoms, Change in LOC, Change in Speech, Confusion, Dizziness, Headache, Incoordination, Numbness, Parasthesia, Pre-Existing Deficit , Seizure, Syncope, Tremors, Unsteady Gait, Weakness, Other Endocrine: denies: No Symptoms, Excessive Sweating, Flushing, Increased Hunger, Increased Thirst, Intolerance to Cold, Intolerance to Heat, Unexplained Weight Gain, Unexplained Weight Loss, Other Hematology/Lymphatic: denies: No Symptoms, Easily Bruised, Excessive Bleeding, Swollen Glands, Other Psychiatric: denies: No Symptoms, Altered Sleep Pattern, Anxiety, Depression, Hallucinations, Panic, Paranoia, Suicidal, Other Vital Signs: Vital Signs Temperature 98.3 F 04/06/19 04:00 Pulse Rate 99 H 04/06/19 04:00 Respiratory Rate 18 04/06/19 04:00 Blood Pressure 147/88 04/06/19 04:00 O2 Sat by Pulse Oximetry (%) 98 04/06/19 04:00 Constitutional: Yes: No Distress, Calm, Obese Eyes: Yes: Conjunctiva Clear, EOM Intact HENT: Yes: Atraumatic, Normocephalic Neck: Yes: Supple, Trachea Midline Respiratory: Yes: Regular, CTA Bilaterally. No: Rales, Rhonchi, Wheezes Gastrointestinal: Yes: Normal Bowel Sounds, Soft, Tenderness Cardiovascular: Yes: Regular Rate and Rhythm. No: Bradycardia, Tachycardia, Pulse Irregular, Gallop, Rub, Varicosities JVD: No Carotid Bruit: No PMI: Non-Displaced Heart Sounds: Yes: S1, S2. No: Split S2, S3, S4, Clicks, Gallop, Rub, Bruit Murmur: No: Systolic Murmur, Diastolic Murmur Musculoskeletal: Yes: WNL Extremities: Yes: WNL Edema: No Peripheral Pulses WNL: Yes Peripheral Pulses: 2+ Left Doralis Pedis, 2+ Right Dorsalis Pedis Neurological: Yes: Alert, Oriented Psychiatric: Yes: Alert, Oriented - Other Data Labs, Other Data: CBC, BMP 04/06/19 07:25 ekg-nsr, normal ecg. Imaging - Results Chest X-ray: Report Reviewed, Image Reviewed EKG: Report Reviewed, Image Reviewed Other: Report Reviewed, Image Reviewed (tele-nsr, sinus tach, no arrhythmias) Assessment/Plan 49 year old woman with pmh obesity now s/p bariatric surgery. overnight last night noted to be tachycardia to 130s, sinus tach in the setting of postoperative pain. pt was given pain meds with improvement in pain and improvement in HR. pt seen and examined today in nad. states her pain is improved but came back again this am and she recently received more pain meds. no chest pain, sob, palpitations. no cardiac history. Tachycardia Sinus tach overnight. Most likely secondary to postoperative pain. No arrhythmias on tele, only nsr, sinus tach ECG this am is normal with normal HR HR improved with pain control. Cont pain control Hydration as needed. No additional cardiac work up is needed at this time. Please call with any additional questions.
[2019-04-06] MEDS: ENOXAPARIN NA (PORCINE) 40 MG/0.4 ML DISP.SYRIN SQ SCH (10:01)
[2019-04-06] MEDS: FAMOTIDINE 20 MG/50 ML IVPB 20 MG/50 ML MG IVPB SCH (10:02)
[2019-04-06 10:57] LABS: ALBUMIN 3.7 g/dl (3.4-5.0); BILIRUBIN,TOTAL 0.9 mg/dL (0.2-1); BLOOD UREA NITROGEN 9.3 mg/dL (7-18); CALCIUM 9.7 mg/dL (8.5-10.1); CREATININE 0.7 mg/dL (0.55-1.3); POTASSIUM 4.1 mmol/L (3.5-5.1); TOT PROT 7.7 g/dl (6.4-8.2)
--- NOTE | 2019-04-06 12:44 | EKG ---
Test Reason : Blood Pressure : / mmHG Vent. Rate : 093 BPM Atrial Rate : 093 BPM P-R Int : 170 ms QRS Dur : 090 ms QT Int : 342 ms P-R-T Axes : 059 048 041 degrees QTc Int : 425 ms NORMAL SINUS RHYTHM POSSIBLE LEFT ATRIAL ENLARGEMENT POSSIBLE ANTERIOR INFARCT , AGE UNDETERMINED ABNORMAL ECG WHEN COMPARED WITH ECG OF 12-DEC-2018 14:25, NO SIGNIFICANT CHANGE WAS FOUND Confirmed by MD Aiden, Karan ([id number]) on 04/06/2019 12:44:09 PM Referred By: David Garcia Confirmed By:Karan Wolfe MD
--- NOTE | 2019-04-06 13:48 | PN ---
Progress Note (short form) - Note Progress Note: ANESTHESIA POSTOP 49 YO FEMALE POD#1 S/P LAP GASTRIC SLEEVE Patient resting in bed. Pain adequately controlled. Sips of clears tolerated. VSS, Afebrile Continue current care. No anesthetic complications. Encouraged IS and ambulation.
[2019-04-06] MEDS ORDERED: oxyCODONE HCL 5 MG TABLET PO PRN (13:58)
[2019-04-06] MEDS ORDERED: SODIUM CHLORIDE 1,000 ML IV SCH (14:00)
[2019-04-06 14:23] VITALS: PULSE 103
[2019-04-06 20:27] VITALS: BP 138/86; TEMP 99
--- NOTE | 2019-04-08 14:20 | PATH ---
Surgical Pathology Report Patient Name: FRANCISCO JAVIER MARIN Med. Rec. #: [id number] /Age/Gender: 1970 (Age: 49) / F Account: [id number] Location: [facility] Taken: 04/05/2019 Received: 04/05/2019 Reported: 04/08/2019 Physicians: David Garcia M.D. Specimen(s) Received A: GREATER CURVATURE STOMACH B: LIVER BIOPSY Clinical History Morbid obesity Final Diagnosis A. GREATER CURVATURE OF STOMACH, LAPAROSCOPIC GASTRIC SLEEVE EXCISION: PORTION OF STOMACH SHOWING MODERATE CHRONIC GASTRITIS. IMMUNOSTAIN IS NEGATIVE FOR H. PYLORI ORGANISMS. B. LIVER, BIOPSY: LIVER SHOWING MARKED STEATOSIS (~75%) WITH MODERATE STEATOHEPATITIS (GRADE 2). TRICHROME STAIN SHOWS MILD PERISINUSOIDAL FIBROSIS (STAGE I). (SEE NOTE) IRON STAIN SHOWS MINIMAL IRON DEPOSITS (GRADE 1). Note: The Non-Alcoholic Fatty Liver Disease Activity Score (PRIYA) is as follows: steatosis: 3/3, hepatocyte balloonin/2, lobular inflammation: 2/3; total PRIYA score: 7/9. PRIYA fibrosis score: 1/4. Electronically Signed Kalani Méndez M.D. Gross Description A. Received in formalin, labeled "greater curvature of stomach," is an 88 gram, 19.0 x 2.8 x 2.5 cm. portion of stomach with a stapled margin of resection. The serosa is malcolm-lux with minimal attached fat. The mucosa is malcolm-pink with normal folds. No mucosal masses are identified. Stripping Shovel Operator sections are submitted in one cassette. B. Received in formalin labeled "liver biopsy," is a 1.7 x 0.7 x 0.5 cm malcolm, irregular portion of soft tissue, consistent with a portion of liver. The specimen is bisected and entirely submitted in one cassette. DL04/06/2019 saudi04/06/2019
== END 2019-04-06 20:45 | disposition home or self-care (01) | DRG 403 ==
LOC: FM/S 04-05 06:03
PROVIDERS: ADMIT Surgery; ATTEND Surgery
PROC: 0DJ04ZZ Inspection of Upper Intestinal Tract, Percutaneous Endoscopic Approach (ICD-10-PCS; 2019-04-05)
PROC: 0DB64Z3 Excision of Stomach, Percutaneous Endoscopic Approach, Vertical (ICD-10-PCS; principal; 2019-04-05 08:30)
PROC: 0FB24ZX Excision of Left Lobe Liver, Percutaneous Endoscopic Approach, Diagnostic (ICD-10-PCS; 2019-04-05 08:30)
DX: E66.01 Morbid (severe) obesity due to excess calories (principal); Z68.41 Body mass index [BMI] 40.0-44.9, adult; K21.9 Gastro-esophageal reflux disease without esophagitis; D64.9 Anemia, unspecified; R16.0 Hepatomegaly, not elsewhere classified; R00.0 Tachycardia, unspecified; G89.18 Other acute postprocedural pain; F50.89 Other specified eating disorder
CPT/HCPCS: 36415; 74240-TC-FY; 80053; 85025; 85027; 86803; 87389; 93005; 94760; J0131; J7030

== ENCOUNTER 2021-04-02 13:00 | Emergency (ER) | payer OTHER ==
[2021-04-02] MEDS ORDERED: IBUPROFEN 400 MG TABLET (FP) PO ONE ×2 (13:57→14:55)
[2021-04-02 14:15] VITALS: BP 127/64; PULSE 77; TEMP 98.9; BMI 36.8
== END 2021-04-02 15:36 | disposition home or self-care (01) ==
LOC: FER 13:00
DX: R22.0 Localized swelling, mass and lump, head (principal); M54.2 Cervicalgia; V87.7XXA Person injured in collision between other specified motor vehicles (traffic), initial encounter; Y92.9 Unspecified place or not applicable
CPT/HCPCS: 70486-TC; 99284-25

== ENCOUNTER 2022-11-07 23:47 | Emergency (ER) | payer OTHER ==
[2022-11-07 23:55] VITALS: BP 112/76; PULSE 84; RESP 18; TEMP 98; BMI 34.0
[2022-11-08] MEDS ORDERED: DEXAMETHASONE SOD PHOSPHATE 10 MG/1 ML VIAL PO ONE (00:26)
[2022-11-08] MEDS ORDERED: IBUPROFEN 600 MG TABLET (FP) PO ONE ×2 (00:26→00:29)
[2022-11-08] MEDS ORDERED: DEXAMETHASONE SOD PHOSPHATE 10 MG/1 ML VIAL ONE (00:28)
[2022-11-08 00:40] LABS: THROAT:GRP A STREP NOT DETECTED (NOTDETECTED)
== END 2022-11-08 01:17 | disposition home or self-care (01) ==
LOC: JER 23:47
DX: J02.9 Acute pharyngitis, unspecified (principal); J06.9 Acute upper respiratory infection, unspecified; B34.9 Viral infection, unspecified; H92.02 Otalgia, left ear; Z20.822 Contact with and (suspected) exposure to COVID-19
CPT/HCPCS: 0241U-QW; 87651; 99283-25; J1100